=== PATIENT | female | born 1945 | race Caucasian/White ===

== ENCOUNTER 2017-03-03 13:45 | Emergency (ER) | payer MEDICARE, OTHER ==
[2017-03-03] MEDS ORDERED: IV NORMAL SALINE 1000ML BAG 1,000 ML IV SCH (14:57)
[2017-03-03 15:00] LABS: BASO # 0.1 x10^3/uL (0.0-0.2); BASO % 1 % (0-3); EOS % 3 % (0-3); HEMATOCRIT 45.1 % (36.0-47.0); HEMOGLOBIN 15.5 g/dL (12.0-15.5); LYMPH # 1.2 x10^3/uL (1.0-4.8); LYMPH % 10 % (24-48); MEAN CORPUSCULAR HEMOGLOBIN 33 pg (25-35); MEAN CORPUSCULAR HGB CONC 34 g/dL (31-37); MEAN CORPUSCULAR VOLUME 95 fL (79-100); MONO % 6 % (0-9); NEUT % 80 % (31-73); PLATELET COUNT 244 x10^3/uL (140-400); RED BLOOD COUNT 4.75 x10^6/uL (3.50-5.40); RED CELL DISTRIBUTION WIDTH 13.4 % (11.5-14.5); WHITE BLOOD COUNT 11.5 x10^3/uL (4.0-11.0)
[2017-03-03] MEDS ORDERED: ONDANSETRON PF 4 MG/2 ML VIAL. IV ONE (15:00)
[2017-03-03] MEDS ORDERED: HYDROmorphone 2 MG/ML VIAL IV/SQ PRN (15:00)
[2017-03-03 15:06] LABS: CALCIUM 9.6 mg/dL (8.5-10.1); CREATININE 0.8 mg/dL (0.6-1.0); GFR 70.9
[2017-03-03 15:07] LABS: BILIRUBIN,URINE NEGATIVE (NEG); GLUCOSE,URINE NEGATIVE (NEG); NITRITE,URINE NEGATIVE (NEG); PH,URINE 5.5; PROTEIN,URINE NEGATIVE (NEG-TRACE); UROBILINOGEN,URINE 0.2 mg/dL (0.2 mg/dL)
[2017-03-03 15:12] LABS: ALBUMIN 3.9 g/dL (3.4-5.0); ALBUMIN/GLOBULIN RATIO 1.1 (1.0-1.7); TOTAL BILIRUBIN 0.6 mg/dL (0.2-1.0); TOTAL PROTEIN 7.5 g/dL (6.4-8.2)
[2017-03-03 15:38] LABS: BACTERIA,URINE FEW /HPF (0-FEW); RBC,URINE OCC /HPF (0-2); SQUAMOUS EPITHELIAL CELL,UR FEW /LPF
--- NOTE | 2017-03-03 15:38 | RAD ---
Indication back pain and left flank pain. Diarrhea. Axial images through the abdomen and pelvis were obtained. Study is limited. No IV or gastrointestinal contrast was administered. Note is made of a previous examination 02/21/2015. There is a mass, most compatible with a cyst, in the lower anterior chest wall just to the left midline. No acute finding is seen in either lung base. The liver and spleen appear unremarkable. Clips are seen in the gallbladder fossa. There is very small hiatus hernia. The pancreas adrenal glands and kidneys appear unremarkable. Acute finding in the abdomen is not seen. In the pelvis multiple diverticula are seen associated with the large bowel. These are most numerous in the descending and sigmoid colon. In the distal descending colon, extending over approximately a 5 cm segment, is stranding surrounding the colon most compatible with diverticulitis. A discrete abscess, amenable to drainage, is not seen. A definite mass is not seen but if colonoscopy has not been recently performed this should be considered to assess for this lesser possibility. No additional finding is seen in the pelvis. There are degenerative changes in the lumbar spine likely with an associated component of spinal stenosis. IMPRESSION: Changes involving the distal descending colon most compatible with diverticulitis. No discrete abscess is seen. If colonoscopy has not been recently performed this should be considered as outlined above PQRS Compliance Statement: One or more of the following individualized dose reduction techniques were utilized for this examination: 1. Automated exposure control 2. Adjustment of the mA and/or kV according to patient size 3. Use of iterative reconstruction technique
[2017-03-03] MEDS ORDERED: METR500T PO (16:16)
[2017-03-03] MEDS ORDERED: HYDR-2758 PO (16:16)
[2017-03-03] MEDS ORDERED: CIPR500T PO (16:16)
--- NOTE | 2017-03-03 16:16 | PHYS DOC ---
Past Medical History Past Medical History: No Pertinent History, Arthritis, Other Additional Past Medical Histor: ULCERS Past Surgical History: Cholecystectomy Alcohol Use: None Drug Use: None Adult General Chief Complaint Chief Complaint: GI PROBLEM HPI HPI 71-year-old female presenting to the emergency department with lower abdominal pain more on the left than the right. It is sharp intermittent nonradiating associated with loose stools. She denies blood in her stools. She denies nausea or vomiting. She denies fevers or chills. Review of systems is negative for chest pain shortness of breath headache confusion cyanosis or edema. All other review of systems is negative unless otherwise noted in history of present illness. ED course: 71-year-old female presenting to the emergency department today with lower abdominal pain. Vital signs unremarkable. Pertinent physical exam findings showed tenderness in the left lower quadrant without rebound tenderness or guarding. Blood work obtained along with CT the abdomen pelvis. Patient's workup consistent with acute diverticulitis. Patient given oral pain medication along with oral antibiotics to follow-up with her doctor in the next 3-4 days. The patient was then discharged home in stable condition to follow up with their primary care physician over the next 2-3 days. They were to return if their symptoms worsened or if they were concerned for any reason. Face-to- face discharge instructions and return precautions were given. Patient's questions were answered to their satisfaction. Patient is comfortable plan. Review of Systems Review of Systems SEE ABOVE. Current Medications Current Medications Current Medications Medications (Trade) Dose Ordered Sig/[facility] Start Time Stop Time Status Last Admin Dose Admin Hydromorphone HCl (Dilaudid) 0.5 mg PRN Q15MIN PRN 03/03/17 15:00 03/03/17 17:42 DC 03/03/17 16:44 0.5 MG Ondansetron HCl (Zofran) 4 mg 1X ONCE 03/03/17 15:00 03/03/17 15:01 DC 03/03/17 16:44 4 MG Sodium Chloride 1,000 ml @ 1,000 mls/hr Q1H 03/03/17 14:57 03/03/17 15:56 DC 03/03/17 16:45 1,000 MLS/HR Allergies Allergies Allergies Coded Allergies Type Severity Reaction Last Updated Verified No Known Drug Allergies 06/22/14 No Physical Exam Physical Exam SEE ABOVE Constitutional: Well developed, well nourished, no acute distress, non-toxic appearance. [] HENT: Normocephalic, atraumatic, bilateral external ears normal, oropharynx moist, no oral exudates, nose normal. [] Eyes: PERRLA, EOMI, conjunctiva normal, no discharge. [] Neck: Normal range of motion, no tenderness, supple, no stridor. [] Cardiovascular:Heart rate regular rhythm, no murmur [] Lungs & Thorax: Bilateral breath sounds clear to auscultation [] Abdomen: SEE ABOVE Skin: Warm, dry, no erythema, no rash. [] Back: No tenderness, no CVA tenderness. [] Extremities: No tenderness, no cyanosis, no clubbing, ROM intact, no edema. [] Neurologic: Alert and oriented X 3, normal motor function, normal sensory function, no focal deficits noted. [] Psychologic: Affect normal, judgement normal, mood normal. [] Current Patient Data Vital Signs Vital Signs Date Time Temp Pulse Resp B/P (MAP) Pulse Ox O2 Delivery O2 Flow Rate FiO2 03/03/17 17:20 76 147/66 (93) 92 03/03/17 16:54 Room Air 03/03/17 16:44 16 03/03/17 14:16 97.5 97.5 Lab Values Laboratory Tests Test 03/03/17 14:24 03/03/17 14:30 Urine Collection Type Void Urine Color Yellow Urine Clarity Clear Urine pH 5.5 Urine Specific [place] 1.010 Urine Protein Negative mg/dL (NEG-TRACE) Urine Glucose (UA) Negative mg/dL (NEG) Urine Ketones (Stick) Negative mg/dL (NEG) Urine Blood Negative (NEG) Urine Nitrite Negative (NEG) Urine Bilirubin Negative (NEG) Urine Urobilinogen Dipstick 0.2 mg/dL (0.2 mg/dL) Urine Leukocyte Esterase Negative (NEG) Urine RBC Occ /HPF (0-2) Urine WBC 1-4 /HPF (0-4) Urine Squamous Epithelial Cells Few /LPF Urine Bacteria Few /HPF (0-FEW) Urine Mucus Slight /LPF White Blood Count 11.5 x10^3/uL (4.0-11.0) H Red Blood Count 4.75 x10^6/uL (3.50-5.40) Hemoglobin 15.5 g/dL (12.0-15.5) Hematocrit 45.1 % (36.0-47.0) Mean Corpuscular Volume 95 fL (79-100) Mean Corpuscular Hemoglobin 33 pg (25-35) Mean Corpuscular Hemoglobin Concent 34 g/dL (31-37) Red Cell Distribution Width 13.4 % (11.5-14.5) Platelet Count 244 x10^3/uL (140-400) Neutrophils (%) (Auto) 80 % (31-73) H Lymphocytes (%) (Auto) 10 % (24-48) L Monocytes (%) (Auto) 6 % (0-9) Eosinophils (%) (Auto) 3 % (0-3) Basophils (%) (Auto) 1 % (0-3) Neutrophils # (Auto) 9.2 x10^3uL (1.8-7.7) H Lymphocytes # (Auto) 1.2 x10^3/uL (1.0-4.8) Monocytes # (Auto) 0.7 x10^3/uL (0.0-1.1) Eosinophils # (Auto) 0.3 x10^3/uL (0.0-0.7) Basophils # (Auto) 0.1 x10^3/uL (0.0-0.2) Sodium Level 141 mmol/L (136-145) Potassium Level 4.0 mmol/L (3.5-5.1) Chloride Level 104 mmol/L (98-107) Carbon Dioxide Level 30 mmol/L (21-32) Anion Gap 7 (6-14) Blood Urea Nitrogen 10 mg/dL (7-20) Creatinine 0.8 mg/dL (0.6-1.0) Estimated GFR (Cockcroft-Gault) 70.9 BUN/Creatinine Ratio 13 (6-20) Glucose Level 104 mg/dL (70-99) H Calcium Level 9.6 mg/dL (8.5-10.1) Total Bilirubin 0.6 mg/dL (0.2-1.0) Aspartate Amino Transferase (AST) 15 U/L (15-37) Alanine Aminotransferase (ALT) 18 U/L (14-59) Alkaline Phosphatase 92 U/L (46-116) Total Protein 7.5 g/dL (6.4-8.2) Albumin 3.9 g/dL (3.4-5.0) Albumin/Globulin Ratio 1.1 (1.0-1.7) Lipase 74 U/L (73-393) Laboratory Tests 03/03/17 14:30 Laboratory Tests 03/03/17 14:30 EKG EKG [] Radiology/Procedures Radiology/Procedures [] Course & Med Decision Making Course & Med Decision Making Pertinent Labs and Imaging studies reviewed. (See chart for details) [] Dragon Disclaimer Dragon Disclaimer This electronic medical record was generated, in whole or in part, using a voice recognition dictation system. Departure Departure Impression: Primary Impression: Diverticulitis Disposition: HOME, SELF-CARE Condition: STABLE Referrals: BERENICE YUSUF MD (PCP) Patient Instructions: Diverticulitis Additional Instructions: Thank you for allowing us to participate in your care today. Followup with your primary care physician in 3 days if your symptoms do not improve. Call your Primary Doctor tomorrow and inform them of your visit today. If you do not have a primary care provider you can ask for a list of our primary care providers. Return to the emergency department you have any new or concerning findings. This should be evaluated by the primary care physician and any necessary consulting services for continued management within a few days after discharge. Return to emergency room if you have any new or concerning symptoms including but not limited to fever, chills, nausea, vomiting, intractable pain, any new rashes, chest pain, shortness of air, uncontrolled bleeding, difficulty breathing, and/or vision loss. You may have been prescribed medication that can change in your level of thinking and ability to operate machinery. These medications include hydrocodone and Ativan. Also, Benadryl has been known to do this as well. Be sure to check with your pharmacist and ask if the medications you've prescribed can affect your level of consciousness. I recommend not operating heavy machinery or driving while on medication such as these. Scripts Hydrocodone Bit/Acetaminophen (HYDROCODONE-APAP 5-325 ) 1 Each Tablet 1 TAB PO PRN Q6HRS Y for PAIN, #15 TAB 0 Refills Be careful as this medication may cause you to be drowsy or tired. Do not drive on this medication. Prov: PASCUAL TERAN MD 03/03/17 Ciprofloxacin Hcl (CIPROFLOXACIN HCL) 500 Mg Tablet 1 TAB PO BID, #14 TAB Prov: PASCUAL TERAN MD 03/03/17 Metronidazole (FLAGYL) 500 Mg Tablet 1 TAB PO BID, #14 TAB Prov: PASCUAL TERAN MD 03/03/17 PASCUAL TERAN MD Mar 03, 2017 16:16
[2017-03-03 17:20] VITALS: BP 147/66
--- NOTE | 2017-03-04 07:47 | EKG ---
[facility] [address] [place] [address] Test Date: 2017-03-03 Test Time: 14:41:29 Pat Name: CHARLES SALINAS Department: Room: Gender: F Call Center Nurse: : 1945 Requested By: PASCUAL TERAN Order Number: [id number] Reading MD: Sahara Nelson Measurements Intervals Foster Rate: 71 P: 64 ND: 152 QRS: 9 QRSD: 80 T: 62 QT: 368 QTc: 400 Interpretive Statements SINUS RHYTHM NORMAL EKG Electronically Signed On 03-06-2017 10:02:40 CDT by Sahara Nelson
== END 2017-03-03 17:41 | disposition home or self-care (01) ==
LOC: ER 13:45
DX: K57.92 Diverticulitis of intestine, part unspecified, without perforation or abscess without bleeding (principal); M19.90 Unspecified osteoarthritis, unspecified site
CPT/HCPCS: 36415; 74176; 80053; 81001; 83690; 85025; 93005; 96361; 96374; 96375; 99285; J1170; J2405; J7030

== ENCOUNTER → 2017-05-27 | Day surgery (SDC) | payer MEDICARE, OTHER ==
[~2017-05-27] MED LIST: CIPR500T PO; HYDR-2758 PO; IV RINGERS,LACTATED 1000ML 1,000 ML IV SCH; LIDOCAINE 1% PF 2 ML VIAL. ID PRN; METR500T PO; MIDAZOLAM HCL/PF 2 MG/2 ML VIAL. IV PRN; NAPR220T70 PO; PROPOFOL 20 ML IV ONE; fentaNYL PF VIAL 100 MCG/2 ML VIAL IV PRN
[2017-05-27 13:09] VITALS: BP 140/65
--- NOTE | 2017-05-28 20:12 | PATHOLOGY ---
PATHOLOGY REPORT * * * * * * * * FINAL DIAGNOSIS: Gastric ulcer biopsy: - Segments of duodenal mucosa showing focal acute and mild chronic inflammation and focal foveolar metaplasia. (JPM:ambika; 05/28/2017) COMMENT: Sections of the gastric ulcer biopsy reveal segments of duodenal mucosal showing congestion, focal acute and mild chronic inflammation with scattered admixed eosinophils, and focal foveolar metaplasia. An immunoperoxidase stain for Helicobacter is obtained. No Helicobacter organisms are identified. There is no evidence of malignancy. (JPM:ambika; 05/28/2017) REPORT ELECTRONICALLY SIGNED BY: Alex Banuelos M.D. DATE/TIME: 05/28/2017 14:40 * * * * * * * * GROSS PATHOLOGY: Received in formalin labeled "Charles Salinas, gastric ulcer BX," are 2 segments of blackman soft tissue measuring 0.6 x 0.3 x 0.3 cm in aggregate dimensions and ranging from 0.2 to 0.4 cm in maximum dimension. The specimen is submitted entirely in cassette A1. (TSD; 05/27/2017) INITIAL CPT CODE(S): A; 19865, 21754 Professional services performed [place] [facility] [address] Technical services performed by [facility] at [address] [place] [address]. SPECIMEN(S) RECEIVED: A.Gastric ulcer biopsy CLINICAL HISTORY: Melena PATIENT: CHARLES SALINAS /AGE: 11 1945 (Age: 72) PATIENT #: [id number] ALT CASE #: SPECIMEN COLLECTION DATE: 05/27/2017 SPECIMEN RECEIVED DATE: 05/27/2017 [facility] - [address] [place] [address] - PHONE: [phone] * * * END OF REPORT * * *
== END | disposition home or self-care (01) ==
LOC: ENDOS 11:01
PROVIDERS: ATTEND Internal Medicine Gastroenterology
DX: K64.0 First degree hemorrhoids (principal); K57.30 Diverticulosis of large intestine without perforation or abscess without bleeding; K29.50 Unspecified chronic gastritis without bleeding; K25.9 Gastric ulcer, unspecified as acute or chronic, without hemorrhage or perforation; Z98.51 Tubal ligation status; Z90.710 Acquired absence of both cervix and uterus; Z72.0 Tobacco use
CPT/HCPCS: 43239; 45378; 88305; 88342; J2704

== ENCOUNTER 2018-08-15 13:53 | Emergency (ER) | payer BC, MEDICARE, OTHER ==
[~2018-08-15] VITALS: Ht 154.9 cm; Wt 66.7 kg
[~2018-08-15 13:53] MED LIST changes: -HYDR-2758 PO; +HYDR-2761 PO; -IV RINGERS,LACTATED 1000ML 1,000 ML IV SCH; -LIDOCAINE 1% PF 2 ML VIAL. ID PRN; -MIDAZOLAM HCL/PF 2 MG/2 ML VIAL. IV PRN; -PROPOFOL 20 ML IV ONE; -fentaNYL PF VIAL 100 MCG/2 ML VIAL IV PRN
[2018-08-15] MEDS ORDERED: KETOROLAC 15 MG/ML VIAL. IM ONE (14:45)
--- NOTE | 2018-08-15 15:08 | RAD ---
2 view left rib detail series and PA view chest x-ray Clinical indications: Patient fell on Sunday, August 12, 2018. Upper left and anterior and lateral rib pain. FINDINGS: There are nondisplaced fractures of the lateral aspect of the left fourth and fifth and sixth ribs. No lytic process is seen. Chest x-ray demonstrates no acute lung consolidation or pleural effusion or pneumothorax. Calcified granuloma of left lung base is seen. Mild chronic interstitial lung disease is seen. Heart size and mediastinum and pulmonary vasculature and both mckay are unremarkable. IMPRESSION: Posttraumatic nondisplaced fractures of the lateral aspect of the left fourth and fifth and sixth ribs. Electronically signed by: Te Aguilar MD (08/15/2018 3:05 PM) [id number]
[2018-08-15] MEDS ORDERED: MELO7.5T29 PO (15:26)
[2018-08-15] MEDS ORDERED: HYDR-3164 PO (15:26)
--- NOTE | 2018-08-15 15:27 | PHYS DOC ---
Past Medical History Past Medical History: Arthritis, GERD, Other Additional Past Medical Histor: ULCERS Past Surgical History: Cholecystectomy Alcohol Use: None Drug Use: None Adult General Chief Complaint Chief Complaint: MECHANICAL FALL HPI HPI Patient is a 73 year old female who presents with left chest pain post fall. Patient slipped and fell on ice/'s no 3 days ago. Has been having pain continuously since then. No loss of consciousness. No head injury. No other injuries noted. Increased pain with coughing and deep breath. Better with holding still and more shallow breaths. Pain is moderate to severe in intensity. It is sharp. Over the level of her left breast. There was no syncopal episode. No worsening with exertion.[] Review of Systems Review of Systems Constitutional: Denies fever or chills [] Eyes: Denies change in visual acuity, redness, or eye pain [] HENT: Denies nasal congestion or sore throat [] Respiratory: Denies cough or shortness of breath [] Cardiovascular: No additional information not addressed in HPI [] GI: Denies abdominal pain, nausea, vomiting, bloody stools or diarrhea [] : Denies dysuria or hematuria [] Musculoskeletal: Denies back pain or joint pain [] Integument: Denies rash or skin lesions [] Neurologic: Denies headache, focal weakness or sensory changes [] Endocrine: Denies polyuria or polydipsia [] All other systems were reviewed and found to be within normal limits, except as documented in this note. Current Medications Current Medications Current Medications Medications (Trade) Dose Ordered Sig/[facility] Start Time Stop Time Status Last Admin Dose Admin Ketorolac Tromethamine (Toradol 15mg Vial) 15 mg 1X ONCE 08/15/18 14:45 08/15/18 14:46 DC 08/15/18 14:31 15 MG Allergies Allergies Allergies Coded Allergies Type Severity Reaction Last Updated Verified No Known Drug Allergies 05/27/17 No Physical Exam Physical Exam Constitutional: Well developed, well nourished, no acute distress, non-toxic appearance. [] HENT: Normocephalic, atraumatic, bilateral external ears normal, oropharynx moist, no oral exudates, nose normal. [] Eyes: PERRLA, EOMI, conjunctiva normal, no discharge. [] Neck: Normal range of motion, no tenderness, supple, no stridor. [] Cardiovascular:Heart rate regular rhythm, no murmur [] Lungs & Thorax: Bilateral breath sounds clear to auscultation, there is tenderness to palpation at the level of her left breast. There is no flail segment noted, no crepitus. There is no bruising noted. No axillary lymphadenopathy. [] Abdomen: Bowel sounds normal, soft, no tenderness, no masses, no pulsatile masses. [] Skin: Warm, dry, no erythema, no rash. [] Back: No tenderness, no CVA tenderness. [] Extremities: No tenderness, no cyanosis, no clubbing, ROM intact, no edema. [] Neurologic: Alert and oriented X 3, normal motor function, normal sensory function, no focal deficits noted. [] Psychologic: Affect normal, judgement normal, mood normal. [] Current Patient Data Vital Signs Vital Signs Date Time Temp Pulse Resp B/P (MAP) Pulse Ox O2 Delivery O2 Flow Rate FiO2 08/15/18 13:53 98.1 83 18 131/63 (85) 95 Room Air 98.1 EKG EKG [] Radiology/Procedures Radiology/Procedures IBS LEFT AND PA CHEST 2 view left rib detail series and PA view chest x-ray Clinical indications: Patient fell on Wednesday, August 12, 2018. Upper left and anterior and lateral rib pain. FINDINGS: There are nondisplaced fractures of the lateral aspect of the left fourth and fifth and sixth ribs. No lytic process is seen. Chest x-ray demonstrates no acute lung consolidation or pleural effusion or pneumothorax. Calcified granuloma of left lung base is seen. Mild chronic interstitial lung disease is seen. Heart size and mediastinum and pulmonary vasculature and both mckay are unremarkable. IMPRESSION: Posttraumatic nondisplaced fractures of the lateral aspect of the left fourth and fifth and sixth ribs.[] Course & Med Decision Making Course & Med Decision Making Pertinent Labs and Imaging studies reviewed. (See chart for details) ED course: Patient arrived, was placed in bed, in tolerated exam well. She was transported to and from radiology without any complications. After the return of the imaging findings, these were discussed with the patient who voiced understanding. All questions were answered. Patient was discharged in improved condition. Medical decision making: There is no evidence of pneumonia or pneumothorax. Given the rib fractures doubt that this is a case of acute coronary syndrome. No other injuries identified.[] Dragon Disclaimer Dragon Disclaimer This electronic medical record was generated, in whole or in part, using a voice recognition dictation system. Departure Departure Impression: Primary Impression: Rib fractures Disposition: 01 HOME, SELF-CARE Condition: IMPROVED Referrals: BERENICE YUSUF MD (PCP) Follow-up in 2 days Patient Instructions: Rib Fracture Additional Instructions: Follow-up with your regular doctor in 2 days. Use the incentive spirometer every hour while awake. Follow-up with your regular doctor in 2 days. Return to the ER if worsening difficulty breathing, you develop a fever of more than 101� , or any other concerns. Scripts Hydrocodone/Apap 5-325 (NORCO 5-325 TABLET) 1 Each Tablet 1-2 EACH PO PRN Q6HRS PRN for SEVERE PAIN, #20 as needed for pain Prov: ARNEL HAMM DO 08/15/18 Meloxicam (MELOXICAM) 7.5 Mg Tablet 7.5 MG PO DAILY, #20 TAB Prov: ARNEL HAMM DO 08/15/18 Problem Qualifiers Primary Impression: Rib fractures Encounter type: initial encounter Rib fracture type: multiple ribs Fracture type: closed Laterality: left Qualified Codes: S22.42XA - Multiple fractures of ribs, left side, initial encounter for closed fracture ARNEL HAMM DO Aug 15, 2018 15:27
[2018-08-15 16:00] VITALS: BP 116/57
== END 2018-08-15 20:03 | disposition home or self-care (01) ==
LOC: ER 13:53
DX: S22.42XA Multiple fractures of ribs, left side, initial encounter for closed fracture (principal); M19.90 Unspecified osteoarthritis, unspecified site; K21.9 Gastro-esophageal reflux disease without esophagitis; W00.0XXA Fall on same level due to ice and snow, initial encounter; Y93.89 Activity, other specified; Y92.89 Other specified places as the place of occurrence of the external cause; Y99.8 Other external cause status
CPT/HCPCS: 71101; 96372; 99283; J1885